=== PATIENT | female | born 1995 | race Caucasian/White ===

== ENCOUNTER 2020-07-04 16:10 | Outpatient (REF) | payer MEDICAID, SELFPAY | END 2020-07-04 16:11 | disposition home or self-care (01) | LOC: HO.LAB 16:10 | PROVIDERS: Visit Provider Internal Medicine | DX: Z20.822 Contact with and (suspected) exposure to COVID-19 (principal) | CPT/HCPCS: 36415; C9803; U0003; U0005 ==

== ENCOUNTER 2020-07-23 12:54 | Outpatient (REF) | payer MEDICAID, SELFPAY | END 2020-07-23 12:55 | disposition home or self-care (01) | LOC: HO.LAB 12:54 | PROVIDERS: Visit Provider Internal Medicine | DX: Z20.822 Contact with and (suspected) exposure to COVID-19 (principal) | CPT/HCPCS: 36415; C9803; U0003; U0005 ==

== ENCOUNTER 2020-08-27 13:35 | Emergency (ER) | payer MEDICAID, SELFPAY ==
[2020-08-27 13:46] VITALS: BP 120/58; PULSE 70; RESP 16; TEMP 37; O2SAT 98; BMI 31.2
--- NOTE | 2020-08-27 14:04 | ED.GENADULT ---
HPI - General Adult General Chief complaint: General Medical <IBRAHIMA Robbins Last Filed: 09/01/20 10:18> Stated complaint: MEDICATION REFILL <IBRAHIMA Robbins Last Filed: 09/01/20 10:18> Time Seen by Provider: 08/27/20 14:04 <IBRAHIMA Robbins Last Filed: 09/01/20 10:18> History of Present Illness HPI narrative: Patient presents for a 1 time dose of her daily Subutex, there is a power outage and the pharmacy could not find her prescription so she comes here with no other complaints She is now, she takes the Subutex 8 mg daily <IBRAHIMA Robbins Last Filed: 09/01/20 10:18> Related Data Allergies/adverse reactions: Allergies Allergy/AdvReac Type Severity Reaction Status Date / Time No Known Allergies Allergy Unverified 02/16/20 17:11 [No Known Allergies*] <IBRAHIMA Robbins Last Filed: 09/01/20 10:18> Review of Systems Review of Systems: Medication refill Negatives are no fever no chills no dizziness no weakness no headache no chest pain no shortness of breath no vomiting no abdominal pain <IBRAHIMA Robbins Last Filed: 09/01/20 10:18> [facility] Past Medical History Attestation statement: The following information was validated with the patient. <IBRAHIMA Robbins Last Filed: 09/01/20 10:18> [facility] Narrative: We spoke to personnel at [facility] to confirm that she has been getting her daily Subutex 8 mg dose and with this verified we got her dose from the pharmacy <IBRAHIMA Robbins Last Filed: 09/01/20 10:18> Medical History: Medical History (Updated 08/28/20 @ 00:01 by She Moncada) Anemia Opioid dependence Short cervix <IBRAHIMA Robbins Last Filed: 09/01/20 10:18> Social History Social History: Social History Alcohol intake: unknown Smoked in Last 30 Days: No Use of substances other than those prescribed or required for medical reasons: Unknown Advance Directives: No Advance Directives Information Provided: No <IBRAHIMA Robbins Last Filed: 09/01/20 10:18> Physical Exam Vital Signs: Vital Signs: Last Vital Signs Temp 98.6 F 03/29/21 13:46 Pulse 70 08/27/20 13:46 Resp 16 08/27/20 13:46 BP 120/58 L 08/27/20 13:46 Pulse Ox 98 08/27/20 13:46 Body Mass Index 31.2 <IBRAHIMA Robbins - Last Filed: 09/01/20 10:18> Vital Signs: Last Vital Signs Temp 98.6 F 08/27/20 13:46 Pulse 70 08/27/20 13:46 Resp 16 08/27/20 13:46 BP 120/58 L 08/27/20 13:46 Pulse Ox 98 08/27/20 13:46 Body Mass Index 31.2 <Cj Duncan MD - Last Filed: 09/14/20 13:44> General appearance comfortable relax no acute distress Head is normocephalic atraumatic The neck is supple Respiratory no distress Extremities full range of motion x4 Skin no obvious rash Neuro she is A&O x3, verbal communication and understanding are normal, gait and balance are normal <IBRAHIMA Robbins - Last Filed: 09/01/20 10:18> Course Course Course Narrative: Due to pallor added and inability to obtain her prescription because the pharmacy had no access to the computer with a power outage she is given a dose here after confirmation with her [facility] <IBRAHIMA Robbins - Last Filed: 09/01/20 10:18> I have reviewed the chart <Cj Duncan MD - Last Filed: 09/14/20 13:44> Discharge Plan Discharge Clinical Impression: Medication refill <IBRAHIMA Robbins - Last Filed: 09/01/20 10:18> Patient Disposition: Home, Self-Care <IBRAHIMA Robbins - Last Filed: 09/01/20 10:18> Additional Instructions: We gave you your daily dose of Subutex 8 mg, follow with regular care for future daily doses Return any concerns <IBRAHIMA Robbins - Last Filed: 09/01/20 10:18> Interventions: ED Discharge Assessment Last Done: 08/27/20 15:40 <IBRAHIMA Robbins - Last Filed: 09/01/20 10:18> Discharge Date/Time: 08/27/20 15:41 <IBRAHIMA Robbins - Last Filed: 09/01/20 10:18>
[2020-08-27] MEDS: Buprenorphine HCL 8 MG TAB.SUBL SUBLINGUAL (15:31)
== END 2020-08-27 15:41 | disposition home or self-care (01) ==
PROVIDERS: Emergency Provider Emergency Medicine
DX: Z76.0 Encounter for issue of repeat prescription (principal); O99.320 Drug use complicating pregnancy, unspecified trimester; F11.20 Opioid dependence, uncomplicated; Z3A.00 Weeks of gestation of pregnancy not specified
CPT/HCPCS: 99282; 99283; J0571

== ENCOUNTER 2021-02-12 18:17 | Emergency (ER) | payer MEDICAID, SELFPAY ==
[2021-02-12 21:39] VITALS: BP 120/54; PULSE 75; RESP 16; TEMP 36.5; O2SAT 100; BMI 32.4
--- NOTE | 2021-02-12 22:15 | ED_ITS ---
HPI - General Adult General Chief complaint: General Medical Stated complaint: ring stuck on finger Time Seen by Provider: 02/12/21 22:15 Source: patient Mode of arrival: ambulatory Limitations: no limitations History of Present Illness HPI narrative: 26-year-old female who presents emergency department for evaluation of 2 ring stuck on her left ring finger. Patient states that she normally takes year readings off at night but did not take her ring off last night. This morning, her left ring finger was very swollen and she was unable to remove the ring. She denies any pain in the finger. She tried multiple methods to try to remove the ring but she was unsuccessful therefore she came to the emergency department. Related Data Allergies Allergy/AdvReac Type Severity Reaction Status Date / Time No Known Allergies Allergy Verified 02/12/21 21:38 [No Known Allergies*] Review of Systems Review of Systems: Yes all other systems are reviewed and are negative PMFSH Past Medical History [facility] Narrative: Social history: The patient denies tobacco, alcohol and drug use. Medical History Anemia Opioid dependence Short cervix Social History Social History Alcohol intake: unknown Advance Directives: No Advance Directives Information Provided: Yes Patient : No Physical Exam Vital Signs: Vital Signs: Last Vital Signs Temp 97.7 F 02/12/21 21:39 Pulse 75 02/12/21 21:39 Resp 16 02/12/21 21:39 BP 120/54 L 02/12/21 21:39 Pulse Ox 100 02/12/21 21:39 Body Mass Index 32.4 Const: General: cooperative Orientation/consciousness: oriented to person and oriented to place Limitations: no limitations HENMT: Head: Yes normocephalic and Yes atraumatic Resp: Effort & Inspection: normal respiratory effort Neuro: General: oriented to person and oriented to place Extrem: Other: There are 2 rings on the patient's left ring finger. The patient has significant edema and soft tissue swelling of the PIP joint, the finger is neurovascularly intact. Course Course Course Narrative: 26-year-old female who presents emergency department for evaluation 2 rings that are stuck on her left ring finger with significant swelling of the PIP joint of this finger. Initially attempted to remove the rings using quarter-inch gauze but I was unsuccessful. Ring cutters were then used to remove both rings. I advised the patient to apply ice to her finger to help reduce the swelling and to keep her hand elevated. The patient is discharged home with verbal and printed instructions. Discharge Plan Discharge Clinical Impression: Swelling of finger joint, Ring or other jewelry causing external constriction, initial encounter Patient Disposition: Home, Self-Care Additional Instructions: Apply ice to her finger to help reduce the swelling, keep your hand elevated this will also help reduce the swelling. Follow-up with your doctor in 2 days. Please return to the emergency department if your symptoms get worse or if you develop any symptoms that are concerning to you. Interventions: ED Discharge Assessment Last Done: 02/12/21 22:54 Discharge Date/Time: 02/12/21 22:54
== END 2021-02-12 22:54 | disposition home or self-care (01) ==
PROVIDERS: Emergency Provider Emergency Medicine Emergency Medical Services
DX: M79.89 Other specified soft tissue disorders (principal); M79.645 Pain in left finger(s)
CPT/HCPCS: 99283; 99284

== ENCOUNTER 2021-05-25 01:59 | Emergency (ER) | payer MEDICAID, SELFPAY ==
[2021-05-25 03:08] VITALS: BP 108/64; PULSE 71; RESP 16; TEMP 36.8; O2SAT 99; BMI 31.8
== END 2021-05-25 03:54 | disposition left against medical advice (07) ==
PROVIDERS: Emergency Provider Emergency Medicine
DX: K06.1 Gingival enlargement (principal)
CPT/HCPCS: 99281; 99282

== ENCOUNTER 2021-05-25 13:05 | Emergency (ER) | payer MEDICAID, SELFPAY ==
[2021-05-25 13:07] VITALS: BP 122/75; PULSE 77; RESP 16; TEMP 37; O2SAT 99; BMI 31.7
--- NOTE | 2021-05-25 14:38 | ED.DENTAL ---
HPI - Dental/Oral General Chief complaint: Dental/Oral Stated complaint: DENTAL PAIN Time Seen by Provider: 05/25/21 14:37 History of Present Illness HPI Narrative: Patient complains of left lower dental pain as well as some mild swelling for 2 days, no fever no difficulty breathing or swallowing no swelling under the tongue Related Data Previous Rx's Medication Instructions Recorded acetaminophen 500 mg tablet 1,000 mg PO QID PRN #30 tab 05/25/21 amoxicillin 875 mg-potassium 1 tab PO Q12H 7 Days #14 tab 05/25/21 clavulanate 125 mg tablet (Augmentin) ibuprofen 600 mg tablet 600 mg PO Q6H PRN #20 tab 05/25/21 Allergies Allergy/AdvReac Type Severity Reaction Status Date / Time No Known Allergies Allergy Verified 02/12/21 21:38 [No Known Allergies*] Review of Systems Review of Systems: Positive for dental pain Negatives are no fever no chills no headache no neck pain no ear pain no difficulty breathing or swallowing no nausea no skin rash Yes all other systems are reviewed and are negative PMFSH Past Medical History Source: nursing notes reviewed Medical History Anemia Opioid dependence Short cervix Social History Social History Alcohol intake: unknown Advance Directives: No Advance Directives Information Provided: No Physical Exam Vital Signs: Vital Signs: Last Vital Signs Temp 98.6 F 05/25/21 13:07 Pulse 77 05/25/21 13:07 Resp 16 05/25/21 13:07 BP 122/75 05/25/21 13:07 Pulse Ox 99 05/25/21 13:07 BMI result Body Mass Index 31.7 General appearance is no acute distress Head is normocephalic atraumatic The eyes no redness or discharge The pharynx is clear with no redness swelling or exudate well-hydrated Dental exam there is tenderness to percussion on left lower molar there is no fluctuant abscess of the thumb there is no trismus there is no drooling no changes to the voice no problem with swallowing Neck is supple Respiratory no distress Extremities full range of motion x4 Course Course Course Narrative: Well-appearing patient without fever no problem swallowing, no swelling under the tongue no trismus with dental infection is treated with antibiotic and analgesic and discharged Discharge Plan Discharge Clinical Impression: Dental caries Patient Disposition: Home, Self-Care Additional Instructions: This is likely a dental infection Use Augmentin as prescribed, antibiotic use Motrin and Tylenol as needed for pain Follow closely with her dentist next week Return any time any worse condition or concerns Prescriptions: New acetaminophen 500 mg tablet 1,000 mg PO QID PRN (Reason: pain) Qty: 30 RF: 0 ibuprofen 600 mg tablet 600 mg PO Q6H PRN (Reason: pain) Qty: 20 RF: 0 amoxicillin-pot clavulanate [Augmentin] 875-125 mg tablet 1 tab PO Q12H 7 Days Qty: 14 RF: 0
[2021-05-25] MEDS: Amoxicillin/Potassium Clav 875 MG TABLET PO (14:43)
[2021-05-25] MEDS: Ibuprofen 600 MG TABLET PO (14:43)
== END 2021-05-25 14:58 | disposition home or self-care (01) ==
PROVIDERS: Emergency Provider Emergency Medicine Emergency Medical Services
DX: K02.9 Dental caries, unspecified (principal)
CPT/HCPCS: 99281; 99283; 99284

== ENCOUNTER 2022-08-10 11:10 | Emergency (ER) | payer MEDICAID, SELFPAY ==
[2022-08-10 11:12] VITALS: BP 127/61; PULSE 67; RESP 16; TEMP 36.2; O2SAT 98; BMI 31.7
--- NOTE | 2022-08-10 11:14 | ED_ITS ---
HPI - Nausea/Vomiting/Diarrhea General Chief complaint: Abdominal Pain Stated complaint: Vomiting Time Seen by Provider: 08/10/22 11:19 Related Data Previous Rx's Medication Instructions Recorded acetaminophen 500 mg tablet 1,000 mg PO QID PRN pain #30 tabs 05/25/21 amoxicillin 875 mg-potassium 1 tab PO Q12H 7 days #14 tabs 05/25/21 clavulanate 125 mg tablet (Augmentin) ibuprofen 600 mg tablet 600 mg PO Q6H PRN pain #20 tabs 05/25/21 Allergies Allergy/AdvReac Type Severity Reaction Status Date / Time No Known Allergies Allergy Verified 08/10/22 11:16 [No Known Allergies*] PMFSH Past Medical History Medical History Anemia Opioid dependence Short cervix Social History Social History Alcohol intake: never Smoked in Last 30 Days: Yes Use of substances other than those prescribed or required for medical reasons: Yes Substance Use Type: Marijuana Advance Directives: No Advance Directives Information Provided: No Patient : No Physical Exam Vital Signs: Vital Signs: Last Vital Signs Temp 98.4 F 08/10/22 13:34 Pulse 54 08/10/22 17:30 Resp 11 L 08/10/22 17:30 BP 99/53 L 08/10/22 17:30 Pulse Ox 98 08/10/22 17:30 O2 Del Method 08/10/22 17:30 BMI result Body Mass Index 31.7 Course Course Course Narrative: RME - 27 y/o female with history of opioid use disorder on Suboxone x3 years who presents to the ER for evaluation of acute onset of N/V/D that started at 2am. Also reports severe cramping middle abdominal pain. Pale and actively vomiting in triage. c/o dizziness Plan: IVF, Zofran, basic lab workup. defer imaging for now Medications Administered Discontinued Medications Generic Name Dose Route Start Last Admin Trade Name Freq PRN Reason Stop Dose Admin Famotidine 20 mg 08/10/22 11:59 08/10/22 12:10 Famotidine/Pf 20 Mg/2 Ml Vial IVPUSH 08/10/22 12:00 20 mg ONCE ONE Administration Sodium Chloride 1,000 mls @ 999 mls/hr 08/10/22 11:15 08/10/22 13:31 Ns IV 08/10/22 12:15 Infused .Q1H1M PATTIE Infusion Magnesium Sulfate/Dextrose 1 gm in 100 mls @ 100 mls/hr 08/10/22 12:50 08/10/22 14:31 Magnesium Sulfate/D5w IV 08/10/22 13:49 Infused ONCE ONE Infusion Ondansetron HCl 4 mg 08/10/22 11:15 08/10/22 12:10 Ondansetron Hcl 4 Mg/2 Ml Vial IVPUSH 08/10/22 11:16 4 mg ONCE ONE Administration Medical Decision Making Lab Data 08/10/22 12:04 08/10/22 12:04 Labs: Lab Results 08/10/22 08/10/22 08/10/22 Range/Units 12:04 12:04 12:04 WBC 11.5 H (4.8-10.8) X10*3/uL RBC 4.15 L (4.20-5.50) X10*6/uL Hgb 11.4 L (12.0-16.0) g/dl Hct 34.4 L (37.0-47.0) % MCV 82.9 (80.0-98.0) fL MCH 27.5 (27.0-33.0) pg MCHC 33.1 (31.0-35.0) g/dl RDW 15.4 (11.0-16.0) % Plt Count 228 (160-400) X10*3/uL MPV 10.9 (9.4-12.3) fL Immature Gran % (Auto) 0.4 (0.0-0.4) % Neut % (Auto) 85.2 H (45-73) % Lymph % (Auto) 9.3 L (20-40) % [place] % (Auto) 4.2 (2-11) % Eos % (Auto) 0.6 (0-4) % Baso % (Auto) 0.3 (0-2) % Lymph # (Auto) 1.1 L (1.2-4.9) X10*3/uL [place] # (Auto) 0.5 (0.1-1.2) X10*3/uL Eos # (Auto) 0.1 (0.0-0.4) X10*3/uL Baso # (Auto) 0.0 (0.0-0.2) X10*3/uL Abs Immat Gran (auto) 0.05 H (0.00-0.03) X10*3/uL Absolute Neuts (auto) 9.8 H (2.0-8.3) x10*3/uL Absolute Nucleated RBC 0.000 (0.0-0.012) X10*3/uL Nucleated RBC % (auto) 0.0 (0.0-0.2) /100WBC Sodium 137 (135-145) mmol/L Potassium 3.9 (3.3-5.1) mmol/L Chloride 106 (96-108) mmol/L Carbon Dioxide 25 (22-29) mmol/L Anion Gap 10 L (12-20) BUN 10 (9-16) mg/dL Creatinine 0.77 (0.5-1.4) mg/dL Estim Creat Clear Calc 117.0 Estimated GFR > 60 Random Glucose 103 (60-115) mg/dL Calcium 9.1 (8.4-10.2) mg/dL Magnesium 1.5 L (1.6-2.6) mg/dL Total Bilirubin 0.9 (0.0-1.0) mg/dL Direct Bilirubin 0.3 (0.0-0.5) mg/dL AST 14 (5-31) U/L ALT 12 (0-31) U/L Alkaline Phosphatase 58 (39-117) U/L Total Protein 7.1 (6.5-8.0) g/dL Albumin 4.2 (3.5-5.0) g/dL Lipase 21 (8-78) U/L Beta HCG, Quant < 2 mIU/mL Urine Color Urine Appearance Urine pH (5.0-9.0) Ur Specific [place] (1.005-1.025) Urine Protein (Neg-Trace) mg/dL Urine Glucose (UA) (Negative) mg/dL Urine Ketones (Negative) mg/dL Urine Blood (Negative) Urine Nitrite (Negative) Ur Leukocyte Esterase (Negative) Urine RBC (0-2) /HPF Urine WBC (0-5) /HPF Ur Squamous Epith Cells (0-2) /HPF Urine Bacteria (None Seen) Hyaline Casts (0-2) /LPF Influenza Type A (PCR) (Negative) Influenza Type B (PCR) (Negative) RSV RNA Qual (PCR) (Negative) SARS-CoV-2 RNA (RT-PCR) (Negative) 08/10/22 08/10/22 Range/Units 12:04 15:32 WBC (4.8-10.8) X10*3/uL RBC (4.20-5.50) X10*6/uL Hgb (12.0-16.0) g/dl Hct (37.0-47.0) % MCV (80.0-98.0) fL MCH (27.0-33.0) pg MCHC (31.0-35.0) g/dl RDW (11.0-16.0) % Plt Count (160-400) X10*3/uL MPV (9.4-12.3) fL Immature Gran % (Auto) (0.0-0.4) % Neut % (Auto) (45-73) % Lymph % (Auto) (20-40) % [place] % (Auto) (2-11) % Eos % (Auto) (0-4) % Baso % (Auto) (0-2) % Lymph # (Auto) (1.2-4.9) X10*3/uL [place] # (Auto) (0.1-1.2) X10*3/uL Eos # (Auto) (0.0-0.4) X10*3/uL Baso # (Auto) (0.0-0.2) X10*3/uL Abs Immat Gran (auto) (0.00-0.03) X10*3/uL Absolute Neuts (auto) (2.0-8.3) x10*3/uL Absolute Nucleated RBC (0.0-0.012) X10*3/uL Nucleated RBC % (auto) (0.0-0.2) /100WBC Sodium (135-145) mmol/L Potassium (3.3-5.1) mmol/L Chloride (96-108) mmol/L Carbon Dioxide (22-29) mmol/L Anion Gap (12-20) BUN (9-16) mg/dL Creatinine (0.5-1.4) mg/dL Estim Creat Clear Calc Estimated GFR Random Glucose (60-115) mg/dL Calcium (8.4-10.2) mg/dL Magnesium (1.6-2.6) mg/dL Total Bilirubin (0.0-1.0) mg/dL Direct Bilirubin (0.0-0.5) mg/dL AST (5-31) U/L ALT (0-31) U/L Alkaline Phosphatase (39-117) U/L Total Protein (6.5-8.0) g/dL Albumin (3.5-5.0) g/dL Lipase (8-78) U/L Beta HCG, Quant mIU/mL Urine Color Yellow Urine Appearance Clear Urine pH >= 9.0 (5.0-9.0) Ur Specific [place] 1.025 (1.005-1.025) Urine Protein 30 (1+) H (Neg-Trace) mg/dL Urine Glucose (UA) Negative (Negative) mg/dL Urine Ketones 15 (Negative) mg/dL Urine Blood Negative (Negative) Urine Nitrite Negative (Negative) Ur Leukocyte Esterase Trace H (Negative) Urine RBC 0-2 (0-2) /HPF Urine WBC 0-5 (0-5) /HPF Ur Squamous Epith Cells 0-2 (0-2) /HPF Urine Bacteria Trace (None Seen) Hyaline Casts 0-2 (0-2) /LPF Influenza Type A (PCR) NEGATIVE (Negative) Influenza Type B (PCR) NEGATIVE (Negative) RSV RNA Qual (PCR) NEGATIVE (Negative) SARS-CoV-2 RNA (RT-PCR) NEGATIVE (Negative) Discharge Plan Discharge Clinical Impression: Gastroenteritis Patient Disposition: Home, Self-Care Instructions: Gastroenteritis (ED) Additional Instructions: Your labs came back normal and at a baseline. recommend plenty of oral hydration. Recommend brat diet which consist of banana, rice, applesauce, and toast. Return to the ED immediately for blood in the stool/diarrhea, intractable fever, chills, inability tolerate solid food/liquid, severe abdominal pain, dysuria, hematuria, flank pain, or any other concerning s ymptoms. Please follow-up primary care provider Prescriptions: No Action acetaminophen 500 mg tablet 1,000 mg PO QID PRN (Reason: pain) Qty: 30 0RF ibuprofen 600 mg tablet 600 mg PO Q6H PRN (Reason: pain) Qty: 20 0RF amoxicillin-pot clavulanate [Augmentin] 875-125 mg tablet 1 tab PO Q12H 7 Days Qty: 14 0RF Stand Alone Forms: Work/School Release Interventions: ED Discharge Assessment Last Done: 08/10/22 17:56 Discharge Date/Time: 08/10/22 17:56 Print Language: Tamazight
[2022-08-10 11:41] VITALS: BP 130/65; PULSE 58; RESP 16; TEMP 36.5; O2SAT 99
--- NOTE | 2022-08-10 11:50 | ED.ABDPAIN ---
HPI - Abdominal Pain General Chief Complaint: Abdominal Pain Stated Complaint: Vomiting Time Seen by Provider: 08/10/22 11:19 Source: patient Mode of arrival: ambulatory Limitations: no limitations History of Present Illness HPI narrative: 27-year-old female presents to ED for epigastric abdominal pain since 02:00am yesterday. Patient states she was sleeping and she woke up with epigastric abdominal pain and mutliple episodes of diarrhea and vomiting. Patient states no recent long travel. MD elicited complaint: abdominal pain Related Data Previous Rx's Medication Instructions Recorded acetaminophen 500 mg tablet 1,000 mg PO QID PRN pain #30 tabs 05/25/21 amoxicillin 875 mg-potassium 1 tab PO Q12H 7 days #14 tabs 05/25/21 clavulanate 125 mg tablet (Augmentin) ibuprofen 600 mg tablet 600 mg PO Q6H PRN pain #20 tabs 05/25/21 Allergies Allergy/AdvReac Type Severity Reaction Status Date / Time No Known Allergies Allergy Verified 08/10/22 11:16 [No Known Allergies*] Review of Systems Review of Systems Abdominal pain, nausea, vomiting, diarrhea Yes all other systems are reviewed and are negative PMFSH Past Medical History Medical History Anemia Opioid dependence Short cervix Social History Social History Alcohol intake: never Smoked in Last 30 Days: Yes Use of substances other than those prescribed or required for medical reasons: Yes Substance Use Type: Marijuana Advance Directives: No Advance Directives Information Provided: No Patient : No Physical Exam ED Vital Signs: Vital Signs - 24 hr 08/10/22 11:12 08/10/22 11:41 08/10/22 13:34 Temperature 97.2 F 97.7 F 98.4 F Pulse Rate 67 58 71 Respiratory Rate 16 16 16 Blood Pressure 127/61 130/65 109/65 Pulse Oximetry 98 99 Oxygen Delivery Method Room Air Room Air Room Air 08/10/22 15:14 08/10/22 17:30 Temperature Pulse Rate 56 54 Respiratory Rate 11 L 11 L Blood Pressure 109/65 99/53 L Pulse Oximetry 98 98 Oxygen Delivery Method Room Air Room Air BMI result Body Mass Index 31.7 Const General: cooperative, healthy appearing, comfortable, no acute distress, well developed, alert and awake Orientation/consciousness: oriented to person, oriented to place, oriented to time and patient oriented x3 [facility] Head: Yes normal to inspection, Yes No palpable skull fracture present, Yes normocephalic, Yes atraumatic and No abrasion Eyes General: appearance normal, both eyes and all related structures Neck Neck: Yes normal visual inspection, Yes full ROM, Yes no lymphadenopathy, Yes no meningeal signs, Yes trachea midline, Yes supple, No anterior neck swelling and No tender Chest Chest palpation & inspection: normal inspection of the chest and normal palpation of entire chest wall Resp Effort & Inspection: normal respiratory effort Auscultation: clear to auscultation bilaterally Cardio Jugular venous distension: no JVD Heart sounds: S1 normal heart sound present and S2 normal heart sound present GI Inspection: Yes normal to inspection and No abdominal wall ecchymosis Palpation (GI): Soft to palpation, not firm, Tenderness to palpation present (GI) in the epigastrum; not in the LLQ, not in the RLQ, not in the LUQ, not in the RUQ, not at McBurney's point, not periumbilically, not suprapubicly, Crowell's sign negative, obturator sign negative, psoas sign negative, with no rebound tenderness and Rovsing's sign negative, no guarding and not rigid General: No CVA tenderness and Yes no CVA tenderness Back/Spine/Pelvis Back: no CVA tenderness, No CVA tenderness and No back tenderness Skin General skin exam: no rashes or lesions noted and elasticity normal Neuro General: oriented to person, oriented to place, oriented to time, patient oriented x3, gait normal, tone normal, moves all extremities, Normal light touch and pain sensation, no meningeal signs, no focal motor deficits and CN's II-XI intact bilaterally Extrem General: Yes normal to inspection and Yes full ROM Psych Appearance: grossly normal, well kempt and not disheveled Course Course Course Narrative: basic labs fluids Pepcid SARS ordered. Reevaluation(s) Reevaluation #1: patient states feeling better after fluids. Patient ate food in the ER. Patient passed p.o. challenge. Abdomen exam re-evaluated and negative for any tenderness, guarding, rigidity, or peritonitis. Abdominal exam benign. COVID, influenza, RSV negative. Patient educated on brat diet. Not suspecting appenditis, cholecysitits, kidney stones, UTI, Pylenophyretis, Mi, pancreatitis, or any other life threatening emergent diagnosis. Time: 17:10 Medical Decision Making Medical Decision Making [facility] Narrative: 27-year-old female presents to ED for abdominal pain, nausea, vomiting, and diarrhea. Labs ordered and IV fluids. Differential Diagnosis Differential Diagnoses: The differential diagnosis associated with the presentation includes (Gastronentertis, RSV, CoVID, INfluenza, UTI) Admission/Observation Consideration of admission/observation: Escalation of care including admission/observation considered Lab Data [facility] Lab Attestation statement: I reviewed the patient's lab results. 08/10/22 12:04 08/10/22 12:04 Labs: Lab Results 08/10/22 08/10/22 08/10/22 Range/Units 12:04 12:04 12:04 WBC 11.5 H (4.8-10.8) X10*3/uL RBC 4.15 L (4.20-5.50) X10*6/uL Hgb 11.4 L (12.0-16.0) g/dl Hct 34.4 L (37.0-47.0) % MCV 82.9 (80.0-98.0) fL MCH 27.5 (27.0-33.0) pg MCHC 33.1 (31.0-35.0) g/dl RDW 15.4 (11.0-16.0) % Plt Count 228 (160-400) X10*3/uL MPV 10.9 (9.4-12.3) fL Immature Gran % (Auto) 0.4 (0.0-0.4) % Neut % (Auto) 85.2 H (45-73) % Lymph % (Auto) 9.3 L (20-40) % Braxton % (Auto) 4.2 (2-11) % Eos % (Auto) 0.6 (0-4) % Baso % (Auto) 0.3 (0-2) % Lymph # (Auto) 1.1 L (1.2-4.9) X10*3/uL Braxton # (Auto) 0.5 (0.1-1.2) X10*3/uL Eos # (Auto) 0.1 (0.0-0.4) X10*3/uL Baso # (Auto) 0.0 (0.0-0.2) X10*3/uL Abs Immat Gran (auto) 0.05 H (0.00-0.03) X10*3/uL Absolute Neuts (auto) 9.8 H (2.0-8.3) x10*3/uL Absolute Nucleated RBC 0.000 (0.0-0.012) X10*3/uL Nucleated RBC % (auto) 0.0 (0.0-0.2) /100WBC Sodium 137 (135-145) mmol/L Potassium 3.9 (3.3-5.1) mmol/L Chloride 106 (96-108) mmol/L Carbon Dioxide 25 (22-29) mmol/L Anion Gap 10 L (12-20) BUN 10 (9-16) mg/dL Creatinine 0.77 (0.5-1.4) mg/dL Estim Creat Clear Calc 117.0 Estimated GFR > 60 Random Glucose 103 (60-115) mg/dL Calcium 9.1 (8.4-10.2) mg/dL Magnesium 1.5 L (1.6-2.6) mg/dL Total Bilirubin 0.9 (0.0-1.0) mg/dL Direct Bilirubin 0.3 (0.0-0.5) mg/dL AST 14 (5-31) U/L ALT 12 (0-31) U/L Alkaline Phosphatase 58 (39-117) U/L Total Protein 7.1 (6.5-8.0) g/dL Albumin 4.2 (3.5-5.0) g/dL Lipase 21 (8-78) U/L Beta HCG, Quant < 2 mIU/mL Urine Color Urine Appearance Urine pH (5.0-9.0) Ur Specific [place] (1.005-1.025) Urine Protein (Neg-Trace) mg/dL Urine Glucose (UA) (Negative) mg/dL Urine Ketones (Negative) mg/dL Urine Blood (Negative) Urine Nitrite (Negative) Ur Leukocyte Esterase (Negative) Urine RBC (0-2) /HPF Urine WBC (0-5) /HPF Ur Squamous Epith Cells (0-2) /HPF Urine Bacteria (None Seen) Hyaline Casts (0-2) /LPF Influenza Type A (PCR) (Negative) Influenza Type B (PCR) (Negative) RSV RNA Qual (PCR) (Negative) SARS-CoV-2 RNA (RT-PCR) (Negative) 08/10/22 08/10/22 Range/Units 12:04 15:32 WBC (4.8-10.8) X10*3/uL RBC (4.20-5.50) X10*6/uL Hgb (12.0-16.0) g/dl Hct (37.0-47.0) % MCV (80.0-98.0) fL MCH (27.0-33.0) pg MCHC (31.0-35.0) g/dl RDW (11.0-16.0) % Plt Count (160-400) X10*3/uL MPV (9.4-12.3) fL Immature Gran % (Auto) (0.0-0.4) % Neut % (Auto) (45-73) % Lymph % (Auto) (20-40) % Braxton % (Auto) (2-11) % Eos % (Auto) (0-4) % Baso % (Auto) (0-2) % Lymph # (Auto) (1.2-4.9) X10*3/uL Braxton # (Auto) (0.1-1.2) X10*3/uL Eos # (Auto) (0.0-0.4) X10*3/uL Baso # (Auto) (0.0-0.2) X10*3/uL Abs Immat Gran (auto) (0.00-0.03) X10*3/uL Absolute Neuts (auto) (2.0-8.3) x10*3/uL Absolute Nucleated RBC (0.0-0.012) X10*3/uL Nucleated RBC % (auto) (0.0-0.2) /100WBC Sodium (135-145) mmol/L Potassium (3.3-5.1) mmol/L Chloride (96-108) mmol/L Carbon Dioxide (22-29) mmol/L Anion Gap (12-20) BUN (9-16) mg/dL Creatinine (0.5-1.4) mg/dL Estim Creat Clear Calc Estimated GFR Random Glucose (60-115) mg/dL Calcium (8.4-10.2) mg/dL Magnesium (1.6-2.6) mg/dL Total Bilirubin (0.0-1.0) mg/dL Direct Bilirubin (0.0-0.5) mg/dL AST (5-31) U/L ALT (0-31) U/L Alkaline Phosphatase (39-117) U/L Total Protein (6.5-8.0) g/dL Albumin (3.5-5.0) g/dL Lipase (8-78) U/L Beta HCG, Quant mIU/mL Urine Color Yellow Urine Appearance Clear Urine pH >= 9.0 (5.0-9.0) Ur Specific [place] 1.025 (1.005-1.025) Urine Protein 30 (1+) H (Neg-Trace) mg/dL Urine Glucose (UA) Negative (Negative) mg/dL Urine Ketones 15 (Negative) mg/dL Urine Blood Negative (Negative) Urine Nitrite Negative (Negative) Ur Leukocyte Esterase Trace H (Negative) Urine RBC 0-2 (0-2) /HPF Urine WBC 0-5 (0-5) /HPF Ur Squamous Epith Cells 0-2 (0-2) /HPF Urine Bacteria Trace (None Seen) Hyaline Casts 0-2 (0-2) /LPF Influenza Type A (PCR) NEGATIVE (Negative) Influenza Type B (PCR) NEGATIVE (Negative) RSV RNA Qual (PCR) NEGATIVE (Negative) SARS-CoV-2 RNA (RT-PCR) NEGATIVE (Negative) Medications Administered Discontinued Medications Generic Name Dose Route Start Last Admin Trade Name Freq PRN Reason Stop Dose Admin Famotidine 20 mg 08/10/22 11:59 08/10/22 12:10 Famotidine/Pf 20 Mg/2 Ml Vial IVPUSH 08/10/22 12:00 20 mg ONCE ONE Administration Sodium Chloride 1,000 mls @ 999 mls/hr 08/10/22 11:15 08/10/22 13:31 Ns IV 08/10/22 12:15 Infused .Q1H1M PATTIE Infusion Magnesium Sulfate/Dextrose 1 gm in 100 mls @ 100 mls/hr 08/10/22 12:50 08/10/22 14:31 Magnesium Sulfate/D5w IV 08/10/22 13:49 Infused ONCE ONE Infusion Ondansetron HCl 4 mg 08/10/22 11:15 08/10/22 12:10 Ondansetron Hcl 4 Mg/2 Ml Vial IVPUSH 08/10/22 11:16 4 mg ONCE ONE Administration Discharge Plan Discharge Clinical Impression: Gastroenteritis Patient Disposition: Home, Self-Care Instructions: Gastroenteritis (ED) Additional Instructions: Your labs came back normal and at a baseline. recommend plenty of oral hydration. Recommend brat diet which consist of banana, rice, applesauce, and toast. Return to the ED immediately for blood in the stool/diarrhea, intractable fever, chills, inability tolerate solid food/liquid, severe abdominal pain, dysuria, hematuria, flank pain, or any other concerning symptoms. Please follow-up primary care provider Prescriptions: No Action acetaminophen 500 mg tablet 1,000 mg PO QID PRN (Reason: pain) Qty: 30 0RF ibuprofen 600 mg tablet 600 mg PO Q6H PRN (Reason: pain) Qty: 20 0RF amoxicillin-pot clavulanate [Augmentin] 875-125 mg tablet 1 tab PO Q12H 7 Days Qty: 14 0RF Stand Alone Forms: Work/School Release Print Language: Greenlandic
[2022-08-10] MEDS: 0.9 % Sodium Chloride 1,000 ML 999 ML IV (12:03)
[2022-08-10 12:08] LABS: MANUAL DIFF FLAG NO
[2022-08-10] MEDS: ondansetron HCL 4 MG/2 ML VIAL IVPUSH (12:10)
[2022-08-10] MEDS: Famotidine/PF 20 MG/2 ML VIAL IVPUSH (12:10)
--- NOTE | 2022-08-10 12:11 | PC.NURSE ---
pt AOx3, reporting N/V/D since 2am this morning. VSS. labs drawn, IV inserted. Fluids hung per order, pt medicated per order. Will cont to monitor.
[2022-08-10 12:20] LABS: Basophils Percent Auto 0.3 % (0-2); Eosinophils Absolute Auto 0.1 X10*3/uL (0.0-0.4); Eosinophils Percent Auto 0.6 % (0-4); Hematocrit 34.4 % (37.0-47.0); Hemoglobin 11.4 g/dl (12.0-16.0); Imm Gran Abs Auto 0.05 X10*3/uL (0.00-0.03); Imm Gran Pct Auto 0.4 % (0.0-0.4); Lymphocytes Absolute Auto 1.1 X10*3/uL (1.2-4.9); Lymphocytes Percent Auto 9.3 % (20-40); Mean Corpuscular HGB Conc 33.1 g/dl (31.0-35.0); Mean Corpuscular Hemoglobin 27.5 pg (27.0-33.0); Mean Corpuscular Volume 82.9 fL (80.0-98.0); Mean Platelet Volume 10.9 fL (9.4-12.3); Monocytes Absolute Auto 0.5 X10*3/uL (0.1-1.2); Monocytes Percent Auto 4.2 % (2-11); Neutrophils Absolute Auto 9.8 x10*3/uL (2.0-8.3); Neutrophils Percent Auto 85.2 % (45-73); Platelet Count 228 X10*3/uL (160-400); Red Blood Count 4.15 X10*6/uL (4.20-5.50); Red Cell Distribution Width 15.4 % (11.0-16.0); White Blood Count 11.5 X10*3/uL (4.8-10.8)
[2022-08-10 12:24] LABS: Alanine Aminotransferase 12 U/L (0-31); Albumin Level 4.2 g/dL (3.5-5.0); Alkaline Phosphatase 58 U/L (39-117); Anion Gap 10 (12-20); Aspartate Amino Transferase 14 U/L (5-31); Bilirubin Direct 0.3 mg/dL (0.0-0.5); Bilirubin Total 0.9 mg/dL (0.0-1.0); Blood Urea Nitrogen 10 mg/dL (9-16); Calcium 9.1 mg/dL (8.4-10.2); Carbon Dioxide 25 mmol/L (22-29); Chloride 106 mmol/L (96-108); Estimated Glomerular Filt Rate > 60; Glucose Random 103 mg/dL (60-115); Lipase 21 U/L (8-78); Magnesium 1.5 mg/dL (1.6-2.6); Potassium 3.9 mmol/L (3.3-5.1); Sodium 137 mmol/L (135-145); Total Protein 7.1 g/dL (6.5-8.0)
[2022-08-10 12:32] LABS: HCG Quantitative < 2 mIU/mL
[2022-08-10 12:50] LABS: Influenza A PCR NEGATIVE (Negative); Influenza B PCR NEGATIVE (Negative); Resp Syncy Virus RNA Qual PCR NEGATIVE (Negative); SARS COV2 PCR INHOUSE NEGATIVE (Negative)
[2022-08-10] MEDS: Magnesium Sulfate/D5W 1 GM/100 ML PIGGYBACK IV (13:31)
[2022-08-10 13:34] VITALS: BP 109/65; PULSE 71; RESP 16; TEMP 36.9
--- NOTE | 2022-08-10 13:36 | PC.NURSE ---
patient a&ox3, potline monitor nsr/sb 60s-70s, vss, iv mag started per order, pt states she has 6/10 pain but is feeling a little better, call tavares within reach, will continue to monitor
--- NOTE | 2022-08-10 15:03 | PC.NURSE ---
pt reports feeling better. No reports of abd pain, nausea or vomiting. Mag infused.
[2022-08-10 15:14] VITALS: BP 109/65; PULSE 56; RESP 11; O2SAT 98
[2022-08-10 15:46] LABS: Appearance Urine Clear; Color Urine Yellow; Glucose Urine UA Negative (Negative); Leukocyte Esterase Urine Trace (Negative); Nitrite Urine Negative (Negative); PH >= 9.0 (5.0-9.0); Specific Gravity - Urine 1.025 (1.005-1.025); UMIC TRIGGER UACC YES; Urine Blood Negative (Negative); Urine Ketones 15 mg/dL (Negative); Urine Protein 30 (1+) mg/dL (Neg-Trace)
[2022-08-10 15:50] LABS: Bacteria Urine Trace (None Seen); Hyaline Casts Urine 0-2 /LPF (0-2); RBC Urine 0-2 /HPF (0-2); Squamous Epithelial Cell Urine 0-2 /HPF (0-2); WBC Urine 0-5 /HPF (0-5)
[2022-08-10 17:30] VITALS: BP 99/53; PULSE 54; RESP 11; O2SAT 98
== END 2022-08-10 17:56 | disposition home or self-care (01) ==
PROVIDERS: Physician Assistant; Emergency Provider Student in an Organized Health Care Education/Training Program
DX: K52.9 Noninfective gastroenteritis and colitis, unspecified (principal); R10.13 Epigastric pain; Z79.899 Other long term (current) drug therapy; Z20.822 Contact with and (suspected) exposure to COVID-19; Z20.828 Contact with and (suspected) exposure to other viral communicable diseases
CPT/HCPCS: 0241U; 36415; 80048; 80076; 81001; 83690; 83735; 84702; 85025; 96361; 96365; 96375; 99284; 99285; J2405; J3475

== ENCOUNTER 2023-02-06 12:19 | Emergency (ER) | payer MEDICAID, SELFPAY ==
--- NOTE | ~2023-02-06 | XR_ITS ---
EXAMINATION: XR KNEE, LEFT CLINICAL INFORMATION: Pain after fall COMPARISON: None available. TECHNIQUE: Four views of the left knee. FINDINGS: There is no visible acute fracture, dislocation or subluxation. No loose bodies or joint effusion. 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 XR/XR knee LT 4V IMPRESSION: No acute fracture or dislocation. Osteoblastic deposition along the posterior distal femoral cortex likely normal variation. If patient has pain in distal femur posterior cortex further workup may be needed.
[2023-02-06 13:25] VITALS: BP 128/51; PULSE 60; RESP 18; TEMP 36.2; O2SAT 99; BMI 29.2
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
== END 2023-02-06 15:00 | disposition home or self-care (01) ==
PROVIDERS: Emergency Provider Emergency Medicine
DX: S80.212A Abrasion, left knee, initial encounter (principal); V86.56XA Driver of dirt bike or motor/cross bike injured in nontraffic accident, initial encounter; M79.662 Pain in left lower leg; Y93.9 Activity, unspecified; Y92.9 Unspecified place or not applicable; Y99.9 Unspecified external cause status
CPT/HCPCS: 73564; 99282; 99283

== ENCOUNTER 2024-05-23 15:18 | Emergency (ER) | payer MEDICAID, SELFPAY ==
--- NOTE | ~2024-05-23 | US_ITS ---
EXAMINATION: US TRANSVAGINAL US TRANSABDOMINAL INDICATION: Vaginal spotting cramping. COMPARISON: Pelvic ultrasound 01/11/2020. TECHNIQUE: Transabdominal and transvaginal pelvic ultrasound was performed. Color and spectral Doppler evaluation of the vasculature. FINDINGS: Single intrauterine is visualized. There is an oval anechoic structure eccentrically positioned within the uterine fundus, indicative of an early gestational sac. A yolk sac and pole are identified. The crown rump length measures approximately 0.33 cm, corresponding to a gestational age of 6 weeks 0 days. A heart rate of 116 beats per minute is identified. Both ovaries appear unremarkable. No adnexal masses are identified. The right ovary measures 4.3 x 3 x 3.6 cm. Right ovarian corpus luteal cyst is noted measuring 3.1 x 2.2 x 2.4 cm. The left ovary measures 2.8 x 1.9 x 1.9 cm. Arterial and venous waveforms are identified in both ovaries on spectral Doppler assessment. There is a small volume free pelvic fluid. US/US OB pelvic and transvaginal IMPRESSION: Single living intrauterine with a sonographic estimated gestational age of 6 weeks 0 days, corresponding with an Estimated Due Date of 01/16/2025. Electronically signed by: Jennifer Verma DO 05/23/2024 08:45 PM [facility]
[2024-05-23 15:49] VITALS: BP 140/48; PULSE 72; RESP 18; TEMP 37; O2SAT 100; BMI 26.1
--- NOTE | 2024-05-23 15:53 | PC.NURSE ---
Pt. is on Suboxone. She requests that if her family is present in the room, her Suboxone is not discussed. States that her family does not know that she takes it and she doesn't want them to know.
--- NOTE | 2024-05-23 15:56 | ED.GENADULT ---
HPI - General Adult General Chief complaint: OB Stated complaint: Vaginal bleeding - pt is Time Seen by Provider: 05/23/24 20:47 History of Present Illness ED Provider: Purvi DEL CASTILLO narrative: The patient is a 29-year-old female. She says that she had a positive home test last week. She says this is her 4th . She says that she has had 1 miscarriage and 2 she has carried to term. She has 2 children. She says that during her 1st that she carried to term the child was born at 23 weeks. From her description it sounds as though she might have had an incompetent cervix. For her 2nd completed she says that she received ?a stitch in my cervix. ? This went to full-term but ultimately she needed a . The patient comes to the emergency room because yesterday she noted a small amount of blood on her toilet paper when she urinated and saw some blood in the toilet. Today she thought there was some brown vaginal discharge. She has not had any significant pain. No dysuria. No nausea or vomiting. No fever, sweats, chills. The patient has not yet been seen by any obstetrical provider for this . She plans on following up with [facility]. Related Data Previous Rx's ?Medication ?Instructions ?Recorded acetaminophen 500 mg tablet 1,000 mg (2 x 500 mg) PO QID PRN 05/25/21 pain #30 tabs amoxicillin 875 mg-potassium 1 tab PO Q12H 7 days #14 tabs 05/25/21 clavulanate 125 mg tablet (Augmentin) ibuprofen 600 mg tablet 600 mg PO Q6H PRN pain #20 tabs 05/25/21 metoclopramide HCl 10 mg tablet 10 mg PO Q6H PRN nausea and 05/23/24 vomiting #12 tabs Allergies Allergy/AdvReac Type Severity Reaction Status Date / Time No Known Allergies Allergy Verified 05/23/24 15:51 [No Known Allergies*] Review of Systems Review of Systems: Yes all other systems are reviewed and are negative [facility] Past Medical History Medical History Anemia Opioid dependence Short cervix Social History Social History Alcohol intake: never Smoked in Last 30 Days: No Use of substances other than those prescribed or required for medical reasons: Yes Substance Use Type: Marijuana Substance Use Frequency: Daily Any prior treatment program specific to substance use: No Advance Directives: No Advance Directives Information Provided: No Do you have a plan to hurt others: No Plan Patient : Yes Physical Exam ED Vital Signs: Vital Signs - 24 hr 05/23/24 15:49 05/23/24 19:32 05/24/24 00:11 Temperature 98.6 F 98.1 F 98.1 F Pulse Rate 72 62 62 Respiratory Rate 18 16 16 Blood Pressure 140/48 H 110/61 110/61 Pulse Oximetry 100 100 100 Oxygen Delivery Method Room Air Room Air Room Air BMI result Body Mass Index 26.1 Const General: cooperative, healthy appearing, comfortable, no acute distress, alert, awake and Physically active HENMT Head: Yes normal to inspection Face and sinus: Yes normal facial exam Mouth: Normal oral and palatal mucosa present and moist mucous membranes Eyes General: appearance normal, both eyes and all related structures Neck Neck: Yes normal visual inspection, Yes full ROM and Yes no lymphadenopathy Resp Effort & Inspection: normal respiratory effort Auscultation: clear to auscultation bilaterally Cardio Rate: regular rate Rhythm: regular rhythm Heart sounds: S1 normal heart sound present and S2 normal heart sound present GI Other: Abdomen is soft and nontender Other: a speculum exam was done for swabbing for bacterial vaginosis and Trichomonas. External vaginal genitalia was normal. There was no significant blood or discharge in the vaginal vault. Bimanual exam was deferred. Skin Other: skin was dry and unremarkable Neuro Other: the patient was awake and alert with normal mental status. Cranial nerves grossly intact. Moving all extremities normally and appropriately. Extrem Other: No peripheral edema Course Course Course Narrative: RME: 29-year-old female about 4 weeks presents to ED for vaginal spotting. Patient denies any recent trauma. Patient's PET states presently no abdominal cramping but had some yesterday. Labs ultrasound ordered Medications Administered Discontinued Medications Generic Name Dose Route Start Last Admin Trade Name Freq PRN Reason Stop Dose Admin Metoclopramide HCl 10 mg 05/23/24 23:01 05/23/24 23:23 Metoclopramide Hcl 10 Mg Tablet PO 05/23/24 23:02 10 mg ONCE ONE Administration Medical Decision Making Medical Decision Making [facility] Narrative: the patient is a 29-year-old female who recently discovered that she was . She has had complicated pregnancies in the past. She delivered her 1st child at 23 weeks. I believe that she was thought to have an incompetent cervix during her 2nd and she describes having a stitch in her cervix. She also said she had problems with bacterial vaginosis during her pregnancies. She presents with some slight vaginal bleeding. Clinically she looks very well. She is Rh positive. An ultrasound shows a live intrauterine fetus. Other labs are unremarkable. The patient was reassured. The patient was concerned about the possibility of bacterial vaginosis and therefore additional testing was done with vaginal swabs. To this point her Trichomonas and yeast is negative. Other bacterial vaginosis serology is pending. GC and chlamydia are negative. She the patient was discharged with reassurance and instructions to follow-up with her OB providers. She plans on following up with OB at [facility]. Lab Data 05/23/24 18:08 05/23/24 18:08 Labs: Lab Results 05/23/24 05/23/24 05/23/24 Range/Units 18:08 21:28 22:02 WBC 8.2 (4.8-10.8) X10*3/uL RBC 3.64 L (4.20-5.50) X10*6/uL Hgb 10.5 L (12.0-16.0) g/dl Hct 30.7 L (37.0-47.0) % MCV 84.3 (80.0-98.0) fL MCH 28.8 (27.0-33.0) pg MCHC 34.2 (31.0-35.0) g/dl RDW 14.1 (11.0-16.0) % Plt Count 233 (160-400) X10*3/uL MPV 10.9 (9.4-12.3) fL Immature Gran % (Auto) 0.2 (0.0-0.4) % Neut % (Auto) 57.1 (45-73) % Lymph % (Auto) 36.7 (20-40) % [place] % (Auto) 4.5 (2-11) % Eos % (Auto) 1.1 (0-4) % Baso % (Auto) 0.4 (0-2) % Lymph # (Auto) 3.0 (1.2-4.9) X10*3/uL [place] # (Auto) 0.4 (0.1-1.2) X10*3/uL Eos # (Auto) 0.1 (0.0-0.4) X10*3/uL Baso # (Auto) 0.0 (0.0-0.2) X10*3/uL Abs Immat Gran (auto) 0.02 (0.00-0.03) X10*3/uL Absolute Neuts (auto) 4.7 (2.0-8.3) x10*3/uL Absolute Nucleated RBC 0.000 (0.0-0.012) X10*3/uL Nucleated RBC % (auto) 0.0 (0.0-0.2) /100WBC PT 12.0 (10.9-12.4) SEC INR 1.0 (0.9-1.1) APTT 34.1 (26.0-36.8) SEC Sodium 137 (135-145) mmol/L Potassium 4.5 (3.3-5.1) mmol/L Chloride 105 (96-108) mmol/L Carbon Dioxide 26 (22-29) mmol/L Anion Gap 11 L (12-20) BUN 8 L (9-16) mg/dL Creatinine 0.65 (0.5-1.4) mg/dL Estim Creat Clear Calc 123.8 Estimated GFR > 60 Random Glucose 99 (60-115) mg/dL Calcium 8.8 (8.4-10.2) mg/dL Total Bilirubin 0.2 (0.0-1.0) mg/dL AST 18 (5-31) U/L ALT 12 (0-31) U/L Alkaline Phosphatase 47 (39-117) U/L Total Protein 7.0 (6.5-8.0) g/dL Albumin 3.8 (3.5-5.0) g/dL Beta HCG, Quant 25839 mIU/mL Urine Color Yellow Urine Appearance Cloudy Urine pH 8.0 (5.0-9.0) Ur Specific [place] 1.015 (1.005-1.025) Urine Protein Negative (Neg-Trace) mg/dL Urine Glucose (UA) Negative (Negative) mg/dL Urine Ketones Negative (Negative) mg/dL Urine Blood Moderate (2+) H (Negative) Urine Nitrite Negative (Negative) Ur Leukocyte Esterase Large (3+) H (Negative) Urine RBC 0-2 (0-2) /HPF Urine WBC 11-20 H (0-5) /HPF Ur Squamous Epith Cells >20 (0-2) /HPF Urine Bacteria 1+ (None Seen) Hyaline Casts 0-2 (0-2) /LPF Chlam trachomat DNA PCR NOT DETECTED (Not Detect.) N.gonorrhoeae DNA (PCR) NOT DETECTED (Not Detect.) T. vaginalis (PCR) (Not Detect) Bact vaginosis (PCR) (Negative) C. krusei/glabrata (PCR) (Not Detect) Camila group (PCR) (Not Detect) Blood Type O Positive 05/23/24 Range/Units 22:37 WBC (4.8-10.8) X10*3/uL RBC (4.20-5.50) X10*6/uL Hgb (12.0-16.0) g/dl Hct (37.0-47.0) % MCV (80.0-98.0) fL MCH (27.0-33.0) pg MCHC (31.0-35.0) g/dl RDW (11.0-16.0) % Plt Count (160-400) X10*3/uL MPV (9.4-12.3) fL Immature Gran % (Auto) (0.0-0.4) % Neut % (Auto) (45-73) % Lymph % (Auto) (20-40) % [place] % (Auto) (2-11) % Eos % (Auto) (0-4) % Baso % (Auto) (0-2) % Lymph # (Auto) (1.2-4.9) X10*3/uL [place] # (Auto) (0.1-1.2) X10*3/uL Eos # (Auto) (0.0-0.4) X10*3/uL Baso # (Auto) (0.0-0.2) X10*3/uL Abs Immat Gran (auto) (0.00-0.03) X10*3/uL Absolute Neuts (auto) (2.0-8.3) x10*3/uL Absolute Nucleated RBC (0.0-0.012) X10*3/uL Nucleated RBC % (auto) (0.0-0.2) /100WBC PT (10.9-12.4) SEC INR (0.9-1.1) APTT (26.0-36.8) SEC Sodium (135-145) mmol/L Potassium (3.3-5.1) mmol/L Chloride (96-108) mmol/L Carbon Dioxide (22-29) mmol/L Anion Gap (12-20) BUN (9-16) mg/dL Creatinine (0.5-1.4) mg/dL Estim Creat Clear Calc Estimated GFR Random Glucose (60-115) mg/dL Calcium (8.4-10.2) mg/dL Total Bilirubin (0.0-1.0) mg/dL AST (5-31) U/L ALT (0-31) U/L Alkaline Phosphatase (39-117) U/L Total Protein (6.5-8.0) g/dL Albumin (3.5-5.0) g/dL Beta HCG, Quant mIU/mL Urine Color Urine Appearance Urine pH (5.0-9.0) Ur Specific [place] (1.005-1.025) Urine Protein (Neg-Trace) mg/dL Urine Glucose (UA) (Negative) mg/dL Urine Ketones (Negative) mg/dL Urine Blood (Negative) Urine Nitrite (Negative) Ur Leukocyte Esterase (Negative) Urine RBC (0-2) /HPF Urine WBC (0-5) /HPF Ur Squamous Epith Cells (0-2) /HPF Urine Bacteria (None Seen) Hyaline Casts (0-2) /LPF Chlam trachomat DNA PCR (Not Detect.) N.gonorrhoeae DNA (PCR) (Not Detect.) T. vaginalis (PCR) NOT DETECTED (Not Detect) Bact vaginosis (PCR) POSITIVE A (Negative) C. krusei/glabrata (PCR) NOT DETECTED (Not Detect) Camila group (PCR) DETECTED A (Not Detect) Blood Type Discharge Plan Discharge Clinical Impression: Vaginal bleeding affecting early , with 6 completed weeks gestation Patient Disposition: Home, Self-Care Additional Instructions: Your testing today seems reassuring. Your ultrasound shows what seems to be an unremarkable early . Please plan on contacting the OB office tomorrow to make a follow up appointment. Your blood type is O positive. You should get a call from the hospital if any of the other tests come back positive. Return to the emergency room or go to [facility] if significantly worse. Prescriptions: New metoclopramide HCl 10 mg tablet 10 mg PO Q6H PRN (Reason: nausea and vomiting) Qty: 12 0RF No Action acetaminophen 500 mg tablet 1,000 mg PO QID PRN (Reason: pain) Qty: 30 0RF ibuprofen 600 mg tablet 600 mg PO Q6H PRN (Reason: pain) Qty: 20 0RF amoxicillin-pot clavulanate [Augmentin] 875-125 mg tablet 1 tab PO Q12H 7 Days Qty: 14 0RF Referrals: [facility] [Outside] (Early , history of complicated pregnancies) Interventions: ED Discharge Assessment Last Done: 05/24/24 00:11 Discharge Date/Time: 05/23/24 23:30 Print Language: Dutch
[2024-05-23 18:13] LABS: MANUAL DIFF FLAG NO
[2024-05-23 18:15] LABS: Basophils Percent Auto 0.4 % (0-2); Eosinophils Absolute Auto 0.1 X10*3/uL (0.0-0.4); Eosinophils Percent Auto 1.1 % (0-4); Hematocrit 30.7 % (37.0-47.0); Hemoglobin 10.5 g/dl (12.0-16.0); Imm Gran Abs Auto 0.02 X10*3/uL (0.00-0.03); Imm Gran Pct Auto 0.2 % (0.0-0.4); Lymphocytes Percent Auto 36.7 % (20-40); Mean Corpuscular HGB Conc 34.2 g/dl (31.0-35.0); Mean Corpuscular Hemoglobin 28.8 pg (27.0-33.0); Mean Corpuscular Volume 84.3 fL (80.0-98.0); Mean Platelet Volume 10.9 fL (9.4-12.3); Monocytes Absolute Auto 0.4 X10*3/uL (0.1-1.2); Monocytes Percent Auto 4.5 % (2-11); Neutrophils Absolute Auto 4.7 x10*3/uL (2.0-8.3); Neutrophils Percent Auto 57.1 % (45-73); Platelet Count 233 X10*3/uL (160-400); Red Blood Count 3.64 X10*6/uL (4.20-5.50); Red Cell Distribution Width 14.1 % (11.0-16.0); White Blood Count 8.2 X10*3/uL (4.8-10.8)
[2024-05-23 18:23] LABS: Partial Thromboplastin Time 34.1 SEC (26.0-36.8)
[2024-05-23 18:41] LABS: Alanine Aminotransferase 12 U/L (0-31); Albumin Level 3.8 g/dL (3.5-5.0); Alkaline Phosphatase 47 U/L (39-117); Anion Gap 11 (12-20); Aspartate Amino Transferase 18 U/L (5-31); Bilirubin Total 0.2 mg/dL (0.0-1.0); Blood Urea Nitrogen 8 mg/dL (9-16); Calcium 8.8 mg/dL (8.4-10.2); Carbon Dioxide 26 mmol/L (22-29); Chloride 105 mmol/L (96-108); Creatinine Clr Calc Pharmacy 123.8; Estimated Glomerular Filt Rate > 60; Glucose Random 99 mg/dL (60-115); Potassium 4.5 mmol/L (3.3-5.1); Sodium 137 mmol/L (135-145)
[2024-05-23 19:32] VITALS: BP 110/61; PULSE 62; RESP 16; TEMP 36.7; O2SAT 100
[2024-05-23 22:19] LABS: Appearance Urine Cloudy; Color Urine Yellow; Glucose Urine UA Negative (Negative); Leukocyte Esterase Urine Large (3+) (Negative); Nitrite Urine Negative (Negative); Specific Gravity - Urine 1.015 (1.005-1.025); UMIC TRIGGER UACC YES; Urine Blood Moderate (2+) (Negative); Urine Ketones Negative (Negative); Urine Protein Negative (Neg-Trace)
[2024-05-23 22:29] LABS: Bacteria Urine 1+ (None Seen); Hyaline Casts Urine 0-2 /LPF (0-2); RBC Urine 0-2 /HPF (0-2); Squamous Epithelial Cell Urine >20 /HPF (0-2); UACC Culture Trigger YES
[2024-05-23 22:40] LABS: HCG Quantitative 20941 mIU/mL
[2024-05-23] MEDS: Metoclopramide HCl 10 MG TABLET PO (23:23)
[2024-05-24 00:11] VITALS: BP 110/61; PULSE 62; RESP 16; TEMP 36.7; O2SAT 100
[2024-05-24 01:33] LABS: CT PCR NOT DETECTED (Not Detect.); NG PCR NOT DETECTED (Not Detect.)
[2024-05-24 11:21] LABS: Bacterial Vaginosis PCR POSITIVE (Negative); Candida Group PCR DETECTED (Not Detect); Candida glab krusei PCR NOT DETECTED (Not Detect); Trichomonas vaginalis PCR NOT DETECTED (Not Detect)
== END 2024-05-23 23:30 | disposition home or self-care (01) ==
PROVIDERS: Physician Assistant; Emergency Provider Emergency Medicine
DX: O20.9 Hemorrhage in early pregnancy, unspecified (principal); O98.811 Other maternal infectious and parasitic diseases complicating pregnancy, first trimester; B37.31 Acute candidiasis of vulva and vagina; N76.0 Acute vaginitis; Z3A.01 Less than 8 weeks gestation of pregnancy
CPT/HCPCS: 0352U; 36415; 76801; 76817; 80053; 81001; 84702; 85025; 85610; 85730; 86900; 86901; 87086; 87491; 87591; 99284